=== PATIENT | male | born 1950 | race Caucasian/White ===

== ENCOUNTER 2021-04-24 06:33 | Day surgery (SDC) | payer MEDICARE ==
[2021-04-24] MEDS ORDERED: Sodium Chloride 0.9% 1,000 ML IV SCH (07:00)
[2021-04-24] MEDS ORDERED: fentaNYL 100 MCG/2 ML SDV ONE (07:08)
[2021-04-24] MEDS ORDERED: Midazolam 1 MG/ML 2 ML SDV ONE (07:08)
[2021-04-24] MEDS ORDERED: Propofol 200 MG/20 ML SDV ONE (07:08)
--- NOTE | 2021-04-24 14:13 | OR ---
DATE OF PROCEDURE: 04/24/2021 SURGEON: Bob Espinoza MD PROCEDURE: Esophagogastroduodenoscopy. FINDINGS: Inflammation at GE junction concerning for reflux disease (biopsied in all 4 quadrants using cold biopsy forceps). COMPLICATIONS: None. PRODUCT MARKETING INTERN: None. ANESTHESIA: MAC. PREOPERATIVE DIAGNOSIS: Dysphagia. POSTOPERATIVE DIAGNOSIS: Dysphagia. PROCEDURE IN DETAIL: The patient was placed in left lateral decubitus position. The EGD scope was introduced and advanced atraumatically to the second part of the duodenum. No evidence of duodenitis or ulceration. No old or new blood. No gastritis. At the GE junction the patient had inflammation concerning for reflux disease. This was biopsied in all 4 quadrants multiple times using cold biopsy forceps. The remaining esophagus was inspected without abnormality. The patient tolerated the procedure well. Bob Espinoza MD /[id number]
== END 2021-04-24 09:10 | disposition home or self-care (01) ==
LOC: JP.SDS 06:33
PROVIDERS: ATTEND Surgery
DX: K20.90 Esophagitis, unspecified without bleeding (principal); K22.8 Other specified diseases of esophagus; K31.89 Other diseases of stomach and duodenum; E78.5 Hyperlipidemia, unspecified; E11.22 Type 2 diabetes mellitus with diabetic chronic kidney disease; I12.9 Hypertensive chronic kidney disease with stage 1 through stage 4 chronic kidney disease, or unspecified chronic kidney disease; N18.9 Chronic kidney disease, unspecified
CPT/HCPCS: 43239; 88305; J2250; J2704; J3010; J7030

== ENCOUNTER 2023-04-29 08:46 | Day surgery (SDC) | payer MEDICARE ==
[~2023-04-29 08:46] MED LIST: Propofol 200 MG/20 ML SDV ONE; fentaNYL 100 MCG/2 ML SDV ONE
[2023-04-29] MEDS ORDERED: Sodium Chloride 0.9% 1,000 ML IV SCH (09:30)
== END 2023-04-29 12:17 | disposition home or self-care (01) ==
LOC: JP.SDS 08:46
PROVIDERS: ATTEND Surgery
DX: K20.90 Esophagitis, unspecified without bleeding (principal); Z87.19 Personal history of other diseases of the digestive system; I12.9 Hypertensive chronic kidney disease with stage 1 through stage 4 chronic kidney disease, or unspecified chronic kidney disease; E11.22 Type 2 diabetes mellitus with diabetic chronic kidney disease; N18.9 Chronic kidney disease, unspecified; E78.00 Pure hypercholesterolemia, unspecified; Z85.828 Personal history of other malignant neoplasm of skin
CPT/HCPCS: 43239; 88305; J2704; J3010; J7030